=== PATIENT | male | born 1945 | race Caucasian/White ===

== ENCOUNTER 2018-05-19 06:51 | Day surgery (SDC) | payer MEDICARE, OTHER ==
[2018-05-18 16:45] VITALS: BMI 37.2
[2018-05-19 07:40] LABS: #Eosinphils 0.1 thou/uL (0.0-0.7); #Lymphocytes 1.1 thou/uL (1.20-3.40); #Monocytes 0.4 thou/uL (0.11-0.59); #Neutrophils 2.2 thou/uL (1.40-6.50); %Eosinophils 1.6 % (0.0-10.0); %Lymphocytes 28.1 % (21.0-51.0); %Monocytes 10.7 % (0.0-10.0); %Neutrophils 58.5 % (42.0-75.0); Hemoglobin 11.1 g/dL (14.0-18.0); Mean Corpuscular Hemoglobin 32.7 pg (27.0-31.0); Mean Corpuscular Volume 99.2 fL (78.0-98.0); Mean Platelet Volume 6.7 fL (7.4-10.4); Platelet Count 172 thou/uL (130-400); RBC Distribution Width 12.7 % (11.5-14.5); White Blood Cell (WBC) Count 3.8 thou/uL (4.8-10.8)
[2018-05-19] MEDS ORDERED: CEFAZOLIN 2 GM/50 ML BAG ONE (07:40)
[2018-05-19 08:00] LABS: Anion Gap 16 mmol/L (10-20); BUN (Urea Nitrogen) 36 mg/dL (8.4-25.7); Calc. Creatinine Clearance 76 mL/min (70-130); Calcium 9.5 mg/dL (7.8-10.44); Carbon Dioxide 23 mmol/L (23-31); Chloride 109 mmol/L (98-107); Estimated GFR-MDRD 51; Glucose 76 mg/dL (83-110); Potassium 3.9 mmol/L (3.5-5.1); Sodium 144 mmol/L (136-145)
[2018-05-19] MEDS ORDERED: Lidocaine 1% (PF) 30 ML VIAL ONE (08:46)
--- NOTE | 2018-05-19 10:36 | EKG ---
Test Reason : PREOP Blood Pressure : / mmHG Vent. Rate : 071 BPM Atrial Rate : 069 BPM P-R Int : 000 ms QRS Dur : 120 ms QT Int : 418 ms P-R-T Axes : 000 -58 029 degrees QTc Int : 454 ms Atrial fibrillation Left anterior fascicular block Abnormal ECG No previous ECGs available Confirmed by DR. Nichole GOLDMAN ([id number]) on 05/19/2018 10:35:54 AM Referred By: IERO Confirmed By:DR. Nichole GOLDMAN
[2018-05-19] MEDS ORDERED: PROPOFOL 200 MG/20 ML VIAL ONE (10:54)
[2018-05-19] MEDS ORDERED: Lidocaine 1% PF 5 ML VIAL ONE (10:54)
[2018-05-19] MEDS ORDERED: PHENYLEPHRINE-NS 100 MCG/ML 10 ML SYRINGE ONE (10:54)
[2018-05-19] MEDS ORDERED: ePHEDrine 50 MG/ML VIAL ONE (10:54)
--- NOTE | 2018-05-19 13:03 | OP ---
DATE OF PROCEDURE: 05/19/2018 PREOPERATIVE DIAGNOSES: Left carpal and cubital tunnel syndromes. POSTOPERATIVE DIAGNOSES: Left carpal and cubital tunnel syndromes. PROCEDURES PERFORMED: 1. Left open carpal tunnel release. 2. Left open cubital tunnel release. 3. Placement of long-arm splint, left upper extremity. UTILITY SERVICE WORKER: None. BLOOD LOSS: Minimal. COMPLICATIONS: None. ANESTHESIA: He did have a general anesthetic. DISPOSITION: He went to recovery room in stable condition. INDICATIONS: A 73-year-old male, who has had long-term carpal and cubital tunnel syndromes. At this time, this gotten to the point where I felt if he did have this released, he could lose significant function of his upper extremity. DESCRIPTION OF PROCEDURE: After all consent forms were explained and signed, he was taken to the operative room and at this time was given general anesthetic. Once the level of anesthesia was appropriate, tourniquet was placed on left arm and left arm was then prepped and draped in standard surgical fashion. At this time, an incision line was drawn out for a carpal tunnel release and 1% plain lidocaine was used to infiltrate this. The limb was then exsanguinated and tourniquet was taken up to 250 mmHg. Using loupe magnification, a 15 blade was used to incise down through skin. Bipolar cautery was then used to coagulate any brisk venous bleeding. At this time, a hemostat was placed underneath the transverse carpal ligament to protect the underlying median nerve. A combination of 15 blade and surgical scissors were then used to transect the transverse carpal ligament. Once this was done, a moist Ray-Stephanie sponge was placed into the wound and the tourniquet was let down. Bipolar cautery was used to coagulate any brisk venous bleeding, and once hemostasis had been achieved, we thoroughly irrigated and dried. We then placed multiple nylon sutures to close our incision. A bulky sterile hand dressing was applied at this time and then covered up. We then sincere out our incision for cubital tunnel and at this time, the limb was again exsanguinated and tourniquet was taken to 250 mmHg. Again, using loupe magnification, a 10 blade was used to incise down through skin and again the bipolar was used to coagulate any brisk venous bleeding. From here, surgical scissors were then used to dissect out the ulnar nerve from proximally in the brachium all the way to first motor branch distally. Once this had been achieved, a moist Ray-Stephanie sponge was again placed into the wound and the tourniquet was again let down. Bipolar was again used to coagulate any brisk venous bleeding. We then infiltrated our superior and inferior skin flaps with local for postop pain relief. We then thoroughly irrigated and dried. We then closed the cubital tunnel with multiple interrupted 0 Vicryl so that the nerve could not fall back into the groove. We then used 2-0 Vicryl and nylon sutures on the skin. Again, a soft tissue dressing was placed around the elbow. We then placed a long-arm posterior fiberglass splint to hold arm in 90-degree flexed position and at this time, the patient had a sling applied. He was then awakened. He was taken to the recovery room in stable condition. All counts were correct at the end of the case and he did receive preoperative IV antibiotics. Job ID: [id number]
== END 2018-05-19 12:10 | disposition home or self-care (01) ==
LOC: SDC 06:51
PROVIDERS: ATTEND Orthopaedic Surgery
PROC: 01N50ZZ Release Median Nerve, Open Approach (ICD-10-PCS; principal; 2018-05-19)
PROC: 01N40ZZ Release Ulnar Nerve, Open Approach (ICD-10-PCS; 2018-05-19)
DX: G56.03 Carpal tunnel syndrome, bilateral upper limbs (principal); G56.22 Lesion of ulnar nerve, left upper limb; I48.91 Unspecified atrial fibrillation; I10 Essential (primary) hypertension; M10.9 Gout, unspecified; Z96.653 Presence of artificial knee joint, bilateral; Z96.642 Presence of left artificial hip joint; Z88.8 Allergy status to other drugs, medicaments and biological substances; Z79.82 Long term (current) use of aspirin; Z79.899 Other long term (current) drug therapy; Z98.890 Other specified postprocedural states
CPT/HCPCS: 80048; 85025; 93005; 93010; J2001

== ENCOUNTER → 2018-08-11 | Day surgery (SDC) | payer MEDICARE, OTHER ==
[2018-08-10 13:21] VITALS: BMI 36.5
[~2018-08-11] MED LIST: Fentanyl 100 MCG/2 ML VIAL ONE; Lidocaine 1% (PF) 30 ML VIAL ONE; Lidocaine 1% PF 5 ML VIAL ONE; Ondansetron PF 4 MG/2 ML Vial ONE; PHENYLEPHRINE-NS 100 MCG/ML 10 ML SYRINGE ONE; PROPOFOL 200 MG/20 ML VIAL ONE
[2018-08-11 06:52] LABS: Hemoglobin 11.8 g/dL (14.0-18.0); Mean Corpuscular HGB CONC 32.7 g/dL (32.0-36.0); Mean Corpuscular Hemoglobin 31.3 pg (27.0-31.0); Mean Corpuscular Volume 95.7 fL (78.0-98.0); Mean Platelet Volume 6.9 fL (7.4-10.4); Platelet Count 193 thou/uL (130-400); RBC Distribution Width 13.4 % (11.5-14.5); Red Blood Cell (RBC) Count 3.76 mill/uL (4.70-6.10); White Blood Cell (WBC) Count 4.8 thou/uL (4.8-10.8)
[2018-08-11 07:12] LABS: Anion Gap 13 mmol/L (10-20); BUN (Urea Nitrogen) 32 mg/dL (8.4-25.7); Calc. Creatinine Clearance 88 mL/min (70-130); Calcium 9.6 mg/dL (7.8-10.44); Carbon Dioxide 22 mmol/L (23-31); Chloride 110 mmol/L (98-107); Estimated GFR-MDRD 62; Glucose 77 mg/dL (83-110); Potassium 4.2 mmol/L (3.5-5.1); Sodium 141 mmol/L (136-145)
--- NOTE | 2018-08-11 15:05 | OP ---
DATE OF PROCEDURE: 08/11/2018 PREOPERATIVE DIAGNOSES: Right arm carpal and cubital tunnel syndromes. POSTOPERATIVE DIAGNOSES: Right arm carpal and cubital tunnel syndromes. PROCEDURES PERFORMED: 1. Right open carpal tunnel release. 2. Right open cubital tunnel release with ulnar nerve transposition. 3. Placement of long-arm splint to right upper extremity. DIE TECHNICIAN: Roger Worley PA-C. BLOOD LOSS: Less than 50. COMPLICATIONS: There were no complications. ANESTHESIA: He had general anesthetic. DISPOSITION: He went to recovery room in stable condition. INDICATIONS: Mr. Giordano is a 73-year-old male, who had severe bilateral carpal and cubital tunnel syndromes and at this time, he is presenting for release on the right side. DESCRIPTION OF PROCEDURE: After all appropriate consent forms were explained and signed, he was taken to the operating room and at this time was given general anesthetic. Once the level of anesthesia was appropriate, tourniquet was placed on the right arm. We then prepped and draped the right upper extremity in standard surgical fashion. Using loupe magnification, the arm was then exsanguinated and tourniquet was taken to 250 mmHg. A 15 blade was used to incise down through skin. Bipolar was used to coagulate any brisk venous bleeding. We then placed a hemostat underneath the transverse carpal ligament to protect the underlying median nerve and a 15 blade and surgical scissors were used to transect the transverse carpal ligament and free up the nerve. The nerve was then evaluated and found to be free of any masses or abnormalities. Tendons underneath were intact. A moist Ray-Stephanie sponge was placed. Tourniquet was let down. At this time, bipolar was used to coagulate any brisk venous bleeding. We then thoroughly irrigated and dried. We then placed multiple interrupted nylon sutures to close the skin incision. A bulky sterile soft tissue hand dressing was applied. At this time, we covered this up with a towel. We then exsanguinated the limb 1 more time and took the tourniquet up to 250 mmHg. Loupe magnification was again used to perform our ulnar nerve release. A 15 blade was used to incise down through skin. Bipolar was used to coagulate any brisk venous bleeding. Scissor dissection was then used from here on out to dissect out the ulnar nerve and free it up proximally to the brachium and down distally to the first motor branch. The soft tissue was removed off the common flexor origin so that the nerve could rest up there comfortably. At this time, a moist Ray-Stephanie sponge was placed into the wound. Tourniquet was let down. Bipolar was used to coagulate any brisk venous bleeding. We then infiltrated our skin flaps with local for postoperative pain relief. We then closed the cubital tunnel tissue with multiple interrupted Vicryls, 2-0 Vicryl and nylon sutures were used on the skin. Once this was done, bulky soft tissue dressing was applied here as well. We then placed a long-arm splint to the right upper extremity. The patient was then awakened. He was taken to recovery room in stable condition. All counts were correct at the end of the case and he did receive preoperative IV antibiotics. Job ID: [id number]
== END ==
LOC: SDC 05:40
PROVIDERS: ATTEND Orthopaedic Surgery
PROC: 01N50ZZ Release Median Nerve, Open Approach (ICD-10-PCS; principal; 2018-08-11)
PROC: 01N40ZZ Release Ulnar Nerve, Open Approach (ICD-10-PCS; 2018-08-11)
DX: G56.23 Lesion of ulnar nerve, bilateral upper limbs (principal); G56.03 Carpal tunnel syndrome, bilateral upper limbs; Z79.02 Long term (current) use of antithrombotics/antiplatelets; Z79.82 Long term (current) use of aspirin; Z79.899 Other long term (current) drug therapy; Z88.8 Allergy status to other drugs, medicaments and biological substances; Z96.642 Presence of left artificial hip joint; Z96.652 Presence of left artificial knee joint; Z98.890 Other specified postprocedural states
CPT/HCPCS: 80048; 85027; J0690; J2001; J3010

== ENCOUNTER 2020-01-26 08:29 | Outpatient (CLI) | payer MEDICARE, OTHER ==
[2020-01-27 12:32] LABS: SARS-CoV-2 MS2 Positive; SARS-CoV-2 N Gene Negative; SARS-CoV-2 S Gene Negative; SARS-CoV-2 by NAA Not Detected (NotDetected); SARS-CoV-2 orf1ab Negative
== END 2020-01-26 08:30 | disposition home or self-care (01) ==
LOC: LABBT 08:29
PROVIDERS: ATTEND Neurological Surgery
DX: M54.16 Radiculopathy, lumbar region (principal); M48.061 Spinal stenosis, lumbar region without neurogenic claudication; Z20.828 Contact with and (suspected) exposure to other viral communicable diseases
CPT/HCPCS: 87635; U0003

== ENCOUNTER 2020-01-30 08:00 | Observation (INO) | payer MEDICARE, OTHER ==
[2020-01-27 12:00] VITALS: BMI 39.0
--- NOTE | 2020-01-29 22:05 | HP ---
SUBJECTIVE: Mr. Giordano is a very pleasant 74-year-old gentleman, presenting to our office via referral from his primary care physician and personal friend as well for discussion of a rather severe right-sided lower extremity L4 pattern of pain. There is some numbness as well. He has attempted chiropractic and muscle relaxers with minimal relief. X-ray and MRI reveal a grade 1, borderline grade 2 anterolisthesis of L4 upon L5 causing severe foraminal stenosis on the right with very minimal on the left. Central canal is widely patent and L3-4 looks free of any neural compromise. Examination is deferred for telehealth visit. PAST MEDICAL HISTORY: Significant for BPH, hypertension, coronary artery disease, arrhythmia, gout. CURRENT MEDICATIONS: Senna Lax, temazepam, tamsulosin finasteride, metoprolol, aspirin, allopurinol, flecainide, losartan, atorvastatin, isosorbide mononitrate, furosemide, fenofibrate, and Xarelto. PAST SURGICAL HISTORY: Right foot unspecified, 3 knee replacements, 1 hip replacement. ALLERGIES: NO KNOWN DRUG ALLERGIES. ASSESSMENT: Lumbar stenosis with radiculopathy. PLAN: Dr. Posey met with the patient, reviewed imaging, advocated for right L4-5 facetectomy and fusion. He explained the patient risks, benefits, and alternatives to the procedure. The patient expressed understanding and elected to move forward with surgery as discussed. I do believe the patient is mentally competent and capable of making medical decisions for himself. We will move forward with surgery as planned. Job ID: [id number]
[2020-01-30 09:27] LABS: Anion Gap 12 mmol/L (10-20); BUN (Urea Nitrogen) 39 mg/dL (8.4-25.7); Calc. Creatinine Clearance 76 mL/min (70-130); Carbon Dioxide 23 mmol/L (23-31); Chloride 107 mmol/L (98-107); Glucose 80 mg/dL (83-110); Potassium 4.2 mmol/L (3.5-5.1); Sodium 138 mmol/L (136-145)
[2020-01-30] MEDS ORDERED: Thrombin 5000 UNITS/5 ML VIAL ONE (10:56)
[2020-01-30] MEDS ORDERED: Bupivacaine HCl 0.5%/Epinephrine 1:200,000/PF 30 ml Vial ONE (10:56)
[2020-01-30] MEDS ORDERED: Fentanyl 100 MCG/2 ML VIAL ONE ×3 (11:03→14:21)
[2020-01-30] MEDS ORDERED: SUGAMMADEX SODIUM 200 MG/2 ML VIAL ONE (13:30)
[2020-01-30] MEDS ORDERED: Ondansetron PF 4 MG/2 ML Vial ONE (13:31)
[2020-01-30] MEDS ORDERED: Dexamethasone 20 MG/5 ML VIAL ONE (13:31)
[2020-01-30] MEDS ORDERED: PROPOFOL 200 MG/20 ML VIAL ONE (13:31)
[2020-01-30] MEDS ORDERED: Rocuronium Bromide 10 MG/ML (10ML VIAL) ONE (13:31)
[2020-01-30] MEDS ORDERED: Lidocaine 1% PF 5 ML VIAL ONE (13:31)
[2020-01-30] MEDS ORDERED: Tamsulosin HCl 0.4 MG CAP ONE (14:22)
[2020-01-30] MEDS ORDERED: HYDROcodone/Acetaminophen 7.5/325 mg Tablet ONE (17:28)
[2020-01-30] MEDS ORDERED: Ondansetron PF 4 MG/2 ML Vial IM PRN (19:11)
[2020-01-30] MEDS ORDERED: Acetaminophen 325 MG TAB PO PRN (19:15)
[2020-01-30] MEDS ORDERED: Acetaminophen 650 MG Suppository PR PRN (19:15)
[2020-01-30] MEDS ORDERED: Milk Of Magnesia 30 ML UDCUP PO PRN (19:15)
[2020-01-30] MEDS ORDERED: tiZANidine HCl 4 MG TAB PO PRN (19:15)
[2020-01-30] MEDS ORDERED: Morphine 4 MG/ML VIAL SLOW IVP PRN (19:15)
[2020-01-30] MEDS ORDERED: HYDROcodone/Acetaminophen 7.5/325 mg Tablet PO PRN (19:15)
[2020-01-30] MEDS ORDERED: diphenhydrAMINE 25 MG CAP PO PRN (19:15)
[2020-01-30] MEDS ORDERED: diphenhydrAMINE 50 MG/ML VIAL IVP PRN (19:15)
[2020-01-30] MEDS ORDERED: Morphine 2 MG/ML VIAL SLOW IVP PRN (19:15)
[2020-01-30] MEDS: Sodium Chloride 0.9% 1,000 ML IV SCH (20:38)
[2020-01-30] MEDS ORDERED: Atorvastatin Calcium 20 MG TAB PO SCH (21:00)
[2020-01-30] MEDS ORDERED: Tamsulosin HCl 0.4 MG CAP PO SCH (21:00)
[2020-01-30] MEDS ORDERED: diphenhydrAMINE 25 MG CAP PO SCH (21:00)
[2020-01-30] MEDS: Acetaminophen ER (8hr) 650 MG TAB PO SCH (21:49)
[2020-01-30] MEDS: hydrALAZINE 25 MG TAB PO SCH (21:50)
[2020-01-30] MEDS: Senokot 8.6 MG TAB PO SCH (21:50)
[2020-01-30] MEDS: Minoxidil 10 MG TAB PO SCH (21:50)
[2020-01-30] MEDS: tiZANidine HCl 4 MG TAB PO SCH (21:50)
[2020-01-30] MEDS: HYDROcodone/Acetaminophen 7.5/325 mg Tablet PO PRN (21:51)
[2020-01-30] MEDS ORDERED: CEFAZOLIN 2 GM in Premix Bag 1 BAG IVPB SCH (23:59)
[2020-01-31] MEDS ORDERED: Tamsulosin HCl 0.4 MG CAP PO SCH (06:00)
[2020-01-31] MEDS: Furosemide 40 MG TAB PO SCH ×2 (08:34→15:26)
[2020-01-31] MEDS: tiZANidine HCl 4 MG TAB PO SCH (08:35)
[2020-01-31] MEDS: Minoxidil 10 MG TAB PO SCH (08:35)
[2020-01-31] MEDS: Potassium Chloride 20 MEQ TAB PO SCH ×2 (08:35→20:40)
[2020-01-31] MEDS: hydrALAZINE 25 MG TAB PO SCH (08:37)
[2020-01-31] MEDS: Senokot 8.6 MG TAB PO SCH (08:38)
[2020-01-31] MEDS: Acetaminophen ER (8hr) 650 MG TAB PO SCH (08:39)
[2020-01-31] MEDS: Sodium Chloride 0.9% 1,000 ML IV SCH (08:41)
[2020-01-31] MEDS: HYDROcodone/Acetaminophen 7.5/325 mg Tablet PO PRN (08:48)
[2020-01-31] MEDS ORDERED: Ascorbic Acid 500 mg Chewable Tablet PO SCH (09:00)
[2020-01-31] MEDS ORDERED: Stress 600 With Zinc 1 TAB PO SCH (09:00)
[2020-01-31] MEDS ORDERED: Allopurinol 100 MG TAB PO SCH (09:00)
[2020-01-31] MEDS ORDERED: Finasteride 5 MG TAB PO SCH (09:00)
[2020-01-31] MEDS ORDERED: Cholecalciferol 1,000 UNITS (25 MCG) TAB PO SCH (09:00)
[2020-01-31] MEDS ORDERED: Losartan 25 MG TAB PO SCH (09:00)
--- NOTE | 2020-01-31 14:50 | EKG ---
Test Reason : PREOP Blood Pressure : / mmHG Vent. Rate : 065 BPM Atrial Rate : 036 BPM P-R Int : 000 ms QRS Dur : 108 ms QT Int : 426 ms P-R-T Axes : 000 -64 023 degrees QTc Int : 443 ms Atrial fibrillation with premature ventricular or aberrantly conducted complexes Left anterior fascicular block Abnormal ECG Confirmed by NORA RODARTE (2) on 01/31/2020 2:50:12 PM Referred By: SHERICE Confirmed By:NORA RODARTE
[2020-01-31 16:00] VITALS: TEMP 98
[2020-01-31 20:24] VITALS: BP 80/47
--- NOTE | 2020-02-01 14:30 | OP ---
DATE OF PROCEDURE: 01/30/2020 REGIONAL EDUCATION COORDINATOR: Deepak Almeida PA-C INDICATION: Pain. DIAGNOSES: Lumbar radiculopathy and spondylolisthesis. PROCEDURES PERFORMED: Right L4-L5 facetectomy and posterolateral instrumented fusion, placement of allograft, and placement of autograft. ANESTHESIA: General. DESCRIPTION OF PROCEDURE: The patient was brought into the operating room and placed under general anesthesia. He was flipped from the supine to prone position on the operating room table. A linear incision was planned at the L4-L5 segment. After prepping and draping and after an appropriate preoperative pause, the incision was created. The soft tissues were swept right of midline. Self-retaining retractors were placed and a C-arm image obtained confirming appropriate location. A high-speed cutting drill bit as well as 2, 3, and 4 mm Kerrisons were then used to perform facetectomy and laminectomy decompression at the L4-L5 segment. Pedicle screws were then placed at L4 and L5. An intraoperative 3D CT scan was then performed to confirm appropriate placement of hardware. Set screws were then placed after a kieran was placed and final tightened under slight degree of distraction. Allograft and autograft material were then placed within the lateral confines of the instrumentation construct. The wound was irrigated. Hemostasis was maintained throughout. The wound was then closed in anatomic layers, and a pressure dressing was applied. There were no known procedural complications. Job ID: [id number]
--- NOTE | 2020-02-01 14:31 | DIS ---
DATE OF ADMISSION: 01/30/2020 DATE OF DISCHARGE: 01/31/2020 ADMISSION DIAGNOSIS: Status post lumbar fusion. DISCHARGE DIAGNOSIS: Status post lumbar fusion. HOSPITAL COURSE: Uneventful. He tolerated the pain with the typical regimen of IV and p.o. pain medications as generally prescribed. no consultations were ordered. The patient ambulated early and often and ultimately discharged home in excellent condition with 2 week followup planned. Job ID: [id number]
== END 2020-01-31 17:07 | disposition home or self-care (01) ==
LOC: SDC 08:00 → SJJU 17:05
PROVIDERS: ADMIT Neurological Surgery; ATTEND Neurological Surgery
PROC: 0SG0071 Fusion of Lumbar Vertebral Joint with Autologous Tissue Substitute, Posterior Approach, Posterior Column, Open Approach (ICD-10-PCS; principal; 2020-01-30)
DX: M43.16 Spondylolisthesis, lumbar region (principal); M54.16 Radiculopathy, lumbar region; M48.061 Spinal stenosis, lumbar region without neurogenic claudication; N40.0 Benign prostatic hyperplasia without lower urinary tract symptoms; I10 Essential (primary) hypertension; I25.10 Atherosclerotic heart disease of native coronary artery without angina pectoris; M10.9 Gout, unspecified; Z79.01 Long term (current) use of anticoagulants; Z79.82 Long term (current) use of aspirin; Z79.899 Other long term (current) drug therapy; Z88.8 Allergy status to other drugs, medicaments and biological substances; Z96.642 Presence of left artificial hip joint
CPT/HCPCS: 20930; 20936; 22612; 22840; 76000; 80048; 82962; 93005; C1713 ×4; C1768; G0378 ×2; 36416; 93010; J0690; J1100; J2405; J2704; J3010; Q0163